=== PATIENT | male | born 1970 | race Two or more races ===

== ENCOUNTER 2018-12-31 15:37 | Emergency (ER) | payer OTHER ==
--- NOTE | 2018-12-31 16:37 | ED ---
Respiratory - HPI Summary HPI Summary: Pt. is a 48 y.o male who presents to the ER for productive cough x 2 weeks. Pt. notes hx of asthma and HTN. Pt. states he has occasionally needed his nebulizer over the last several days which he normally does not need. He notes cough is worse at night and has been coughing up thick mucus. He denies CP, fever, sore throat, sinus pain. Sxs are mild in severity. No current modifying factors. - History of Current Complaint Chief Complaint: EDFluSymptoms Stated Complaint: COUGH CONGESTION Time Seen by Provider: 12/31/18 16:05 Hx Obtained From: Patient Pain Intensity: 0 - Allergy/Home Medications Allergies/Adverse Reactions: Allergies Allergy/AdvReac Type Severity Reaction Status Date / Time Penicillins Allergy Unknown Verified 12/31/18 15:45 Reaction Details PMH/Surg Hx/FS Hx/Imm Hx Previously Healthy: Yes Infectious Disease History: No Infectious Disease History: Denies: Traveled Outside the [place] in Last 30 Days - Family History Known Family History: Positive: Non-Contributory - Social History Occupation: Unemployed Lives: With Family Alcohol Use: Occasionally Substance Use Type: Reports: None Smoking Status (MU): Never Smoked Tobacco Review of Systems Constitutional: Negative Negative: Fever, Chills Eyes: Negative ENT: Negative Cardiovascular: Negative Positive: Shortness Of Breath, Cough Gastrointestinal: Negative Musculoskeletal: Negative Neurological: Negative All Other Systems Reviewed And Are Negative: Yes Physical Exam Triage Information Reviewed: Yes Vital Signs On Initial Exam: Initial Vitals Temp Pulse Resp BP Pulse Ox 97.3 F 88 18 138/97 97 12/31/18 15:44 12/31/18 15:44 12/31/18 15:44 12/31/18 15:44 12/31/18 15:44 Vital Signs Reviewed: Yes Appearance: Positive: Well-Appearing - Pt. sitting in chair in NAD. Skin: Positive: Warm, Dry Head/Face: Positive: Normal Head/Face Inspection Eyes: Positive: Normal, EOMI ENT: Positive: Pharynx normal, TMs normal Neck: Positive: Supple Respiratory/Lung Sounds: Positive: Other - MIld decrease in breath sounds to bilateral bases. No rales, wheeze, rhonchi. Cardiovascular: Positive: Normal, RRR Neurological: Positive: Normal, CN Intact II-III Psychiatric: Positive: Affect/Mood Appropriate Diagnostics - Vital Signs Vital Signs Temp Pulse Resp BP Pulse Ox 12/31/18 15:44 97.3 F 88 18 138/97 97 - Laboratory Lab Statement: Any lab studies that have been ordered have been reviewed, and results considered in the medical decision making process. Disposition - Course Course Of Treatment: Pt. presenting for ongoing cough and congestion. Afebrile. O2 saturation is 97% on RA which is normal. CXR negative for infiltrate per radiology. Given hx of asthma and worsening wheezing will put on a course of predenisone. Tessalon rx for cough. Pt. notes he is visiting the area and will f.u with his regular PCP. To continue nebulizer as directed. Pt. understands and agrees with plan. - Differential Dx - Cardiopulmonary Differential Diagnoses - Cardiopulmonary: Bronchitis, Influenza, Lower Resp Infection, Sinusitis - Diagnoses Provider Diagnoses: Bronchitis Discharge - Sign-Out/Discharge Documenting (check all that apply): Patient Departure Patient Received Moderate/Deep Sedation with Procedure: No - Discharge Plan Condition: Good Disposition: HOME Prescriptions: Benzonatate CAP* [Tessalon 100 MG CAP*] 100 mg PO TID PRN #12 cap PRN Reason: Cough predniSONE TAB* [Deltasone 20 MG TAB*] 40 mg PO DAILY #10 tab Patient Education Materials: Acute Bronchitis (ED) Referrals: [facility] [Outside] Additional Instructions: Call the [facility] to schedule a follow up appointment Continue nebulizer as directed Take new medication as directed Increase fluids and rest Return to ER if symptoms change or worsen - Billing Disposition and Condition Condition: GOOD Disposition: Home
[2018-12-31 17:05] VITALS: BP 124/60
== END 2018-12-31 17:04 | disposition home or self-care (01) ==
LOC: ED 15:37
DX: J40 Bronchitis, not specified as acute or chronic (principal); Z88.0 Allergy status to penicillin
CPT/HCPCS: 71046; 99282